=== PATIENT | female | born 1970 | race Two or more races ===

== ENCOUNTER 2018-03-13 18:52 | Emergency (ER) | payer SELFPAY ==
[2018-03-13] MEDS ORDERED: PROCHLORPERAZINE EDISYLATE INJ 10 MG/2 ML VIAL IM ONE (20:16)
[2018-03-13] MEDS ORDERED: DIPHENHYDRAMINE HCL 50 MG/ML VIAL IM ONE (20:16)
--- NOTE | 2018-03-13 20:24 | ER Document Report ---
ED General - General Chief Complaint: Headache Stated Complaint: KNEE PAIN Time Seen by Provider: 03/13/18 20:08 Notes: Yesterday patient was chasing a cat when her right knee gave out causing her to land on her right knee and also hitting her head on a concrete column. Since that time she has had multiple episodes of vomiting nausea and a global headache. Denies any vision changes or loss of consciousness. Denies being on any blood thinners. Denies any pain elsewhere in her body. TRAVEL OUTSIDE OF THE [place] IN LAST 30 DAYS: No - Related Data Allergies/Adverse Reactions: peanut Allergy (Verified 03/13/18 21:51) Past Medical History - Social History Smoking Status: Unknown if Ever Smoked Family History: Reviewed & Not Pertinent Review of Systems - Review of Systems Constitutional: No symptoms reported EENT: No symptoms reported Cardiovascular: No symptoms reported Respiratory: No symptoms reported Gastrointestinal: No symptoms reported Genitourinary: No symptoms reported Female Genitourinary: No symptoms reported Musculoskeletal: No symptoms reported Skin: No symptoms reported Hematologic/Lymphatic: No symptoms reported Neurological/Psychological: See HPI Physical Exam - Vital signs Vitals: Temp Pulse Resp BP Pulse Ox 98.9 F 100 18 140/94 H 96 03/13/18 19:10 03/13/18 19:10 03/13/18 19:10 03/13/18 19:10 03/13/18 19:10 - General General appearance: Appears well, Alert - HEENT Head: Normocephalic - Nontender cervical spine palpation, Atraumatic - After performing a Medical Screening Examination, I estimate there is LOW risk for ACUTE GLAUCOMA, TEMPORAL ARTERITIS, MENINGITIS, INCRANIAL HEMORRHAGE, or ISCHEMIC STROKE thus I consider the discharge disposition reasonable. I have reevaluated this patient multiple times and no significant life threatening changes are noted. The patient and I have discussed the diagnosis and risks, and we agree with discharging home with close follow-up with the understanding that symptoms and presentations can change. We also discussed returning to the Emergency Department immediately if new or worsening symptoms occur. We have discussed the symptoms which are most concerning (e.g., changing or worsening symptoms, new numbness or weakness, vomiting, fever) that necessitate immediate return. Eyes: Normal, Other - No nystagmus Conjunctiva: Normal Extraocular movements intact: Yes - Right - Respiratory Respiratory status: No respiratory distress Chest status: Nontender Breath sounds: Normal - Cardiovascular Rhythm: Regular Heart sounds: Normal auscultation Murmur: No - Abdominal Inspection: Normal Distension: No distension - Extremities General upper extremity: Normal inspection - Patient has tenderness to palpation of right patella no crepitus. Joint right knee stable, no acute findings on the left lower extremity - Neurological Neuro grossly intact: Yes Cognition: Normal Orientation: AAOx4 Alexander Coma Scale Eye Opening: Spontaneous Alexander Coma Scale Verbal: Oriented [place] Coma Scale Motor: Obeys Commands [place] Coma Scale Total: 15 Speech: Normal Cranial nerves: Normal Cerebellar coordination: Normal Course - Re-evaluation Re-evalutation: 03/13/18 21:40 No acute findings found on CT of head and no concerning findings on the x-ray. Headache has subsided with medications provided emergency department. We will provide oral Compazine take home prescription as well as anti- inflammatories for her knee pain. - Vital Signs Vital signs: Temp Pulse Resp BP Pulse Ox 97.6 F 78 18 136/93 H 96 03/13/18 21:50 03/13/18 21:50 03/13/18 21:50 03/13/18 21:50 03/13/18 21:50 Discharge - Discharge Clinical Impression: Knee pain, right Qualifiers: Chronicity: acute Qualified Code(s): M25.561 - Pain in right knee Fall while running Qualifiers: Encounter type: initial encounter Qualified Code(s): W19.XXXA - Unspecified fall, initial encounter Headache Qualifiers: Headache type: unspecified Headache chronicity pattern: acute headache Intractability: not intractable Qualified Code(s): R51 - Headache Condition: Good Disposition: HOME, SELF-CARE Instructions: Headache ([facility]) Additional Instructions: Please be evaluated in the next week if symptoms are not improving for reevaluation Prescriptions: Naproxen 500 mg PO BID #20 tablet Prochlorperazine Maleate [Compazine 10 mg Tablet] 10 mg PO ASDIR PRN #30 tablet PRN Reason:
--- NOTE | 2018-03-13 20:44 | RADIOLOGY REPORT (SQ) ---
EXAM DESCRIPTION: KNEE RIGHT 3 VIEWS COMPLETED DATE/TIME: 03/13/2018 8:35 pm REASON FOR STUDY: fall, N/V COMPARISON: None. NUMBER OF VIEWS: Four views. TECHNIQUE: AP, lateral, and sunrise patella radiographic images acquired of the right knee. LIMITATIONS: None. FINDINGS: MINERALIZATION: Normal. BONES: No acute fracture or dislocation. No worrisome bone lesions. JOINT: Small marginal patellar osteophytes are present. There is no joint effusion. SOFT TISSUES: No soft tissue swelling. No radio-opaque foreign body. OTHER: No other significant finding. IMPRESSION: Mild patellofemoral degenerative joint changes. TECHNICAL DOCUMENTATION: JOB ID: [id number] [employer]- All Rights Reserved Reading location - IP/workstation name: [email or web address]
--- NOTE | 2018-03-13 21:23 | RADIOLOGY REPORT (SQ) ---
EXAM DESCRIPTION: CT HEAD WITHOUT COMPLETED DATE/TIME: 03/13/2018 8:44 pm REASON FOR STUDY: fall, N/V COMPARISON: None. TECHNIQUE: Axial images acquired through the brain without intravenous contrast. Images reviewed wi th bone, brain and subdural windows. Images stored on PACS. All CT scanners at this facility use dose modulation, iterative reconstruction, and/or weight based d osing when appropriate to reduce radiation dose to as low as reasonably achievable (ALARA). [facility]: Dose Right [facility]: CareDose [facility]: Dose Right [facility]: Teradose 4D [facility]: CertusNet RADIATION DOSE: CT Rad equipment meets quality standard of care and radiation dose reduction techniq ues were employed. CTDIvol: 53.2 mGy. DLP: 964 mGy-cm. mGy. LIMITATIONS: None. FINDINGS: VENTRICLES: Normal size and contour. CEREBRUM: No masses. No hemorrhage. No midline shift. No evidence for acute infarction. Normal gra y/white matter differentiation. No areas of low density in the white matter. CEREBELLUM: No masses. No hemorrhage. No alteration of density. No evidence for acute infarction. EXTRAAXIAL SPACES: No fluid collections. No masses. ORBITS AND GLOBE: No intra- or extraconal masses. Normal contour of globe without masses. CALVARIUM: No fracture. PARANASAL SINUSES: No fluid or mucosal thickening. SOFT TISSUES: No mass or hematoma. OTHER: No other significant finding. IMPRESSION: NORMAL BRAIN CT WITHOUT CONTRAST. EVIDENCE OF ACUTE STROKE: NO. COMMENT: Quality ID # [id number]: Final reports with documentation of one or more dose reduction techniques (e.g., Automated exposure control, adjustment of the mA and/or kV according to patient size, use of iterative reconstruction technique) TECHNICAL DOCUMENTATION: JOB ID: [id number] [employer]- All Rights Reserved Reading location - IP/workstation name: [email or web address]
[2018-03-13 21:51] VITALS: BP 136/93
== END 2018-03-13 21:51 | disposition home or self-care (01) ==
LOC: ER 18:52
DX: M25.561 Pain in right knee (principal); R51 Headache; R11.2 Nausea with vomiting, unspecified; W18.30XA Fall on same level, unspecified, initial encounter; Y93.K9 Activity, other involving animal care
CPT/HCPCS: 99284; 96372; 73562; 70450; J1200; J0780

== ENCOUNTER 2018-05-25 12:49 | Emergency (ER) | payer SELFPAY ==
[2018-05-25] MEDS ORDERED: IPRATROPIUM/ALBUTEROL 0.5-2.5 MG/3 ML AMPUL NEB ONE (13:14)
[2018-05-25] MEDS ORDERED: PREDNISONE 20 MG TABLET PO ONE (13:14)
[2018-05-25] MEDS ORDERED: GUAIFENESIN/CODEINE PHOS 100-10 MG/ 5 ML UDC PO ONE (13:14)
--- NOTE | 2018-05-25 13:18 | ER Document Report ---
ED Flu Like - General Chief Complaint: Flu Symptoms Stated Complaint: FLU LIKE SYMPTOMS Time Seen by Provider: 05/25/18 13:13 Notes: History of Present Illness Chief Complaint: [cough] Cough quality= [dry], [without] sputum [No] hemoptysis [ ] History obtained from [patient] 48 years old female presents today with nearly a week history of runny nose postnasal drip leading to cough and wheezing chest tightness on exertion. Cough is largely dry cough. Denies any chest pain denies any fever chills or other constitutional symptoms. Symptoms began: [past few days] Onset: [gradual] Timing: [constant, lasts hours, persists] Intensity: [moderate] Location: [respiratory tract] Radiation: [none] Migration: [none] Aggravating factors: [none] Relieving factors: [none] Review of Systems : All other systems negative as reviewed. CONSTITUTIONAL No Fever. EYES No eye pain. ENT No sore throat CARDIOVASCULAR No chest pain. RESPIRATORY No SOB, No wheezing, No orthopnea, No pedal edema. GI No abdominal pain, no vomiting, no diarrhea. GENITOURINARY No dysuria. SKIN No rash. NEUROLOGIC No headache. MUSCULOSKELETAL No back pain, No calf pain, No calf swelling Physical Exam CONSTITUTIONAL Vital signs reviewed, Patient has normal respiratory rate, Well appearing, Patient appears comfortable, normal stature. HEAD Atraumatic, Normocephalic. EYES Eyes are normal to inspection. ENT Ears normal to inspection, Nose examination normal. NECK No jugular venous distention. RESPIRATORY CHEST Breath sounds ], No respiratory distress. But diffusely decreased breath sounds bilaterally CARDIOVASCULAR RRR, No murmurs, Normal S1 S2, No rub, No gallop. ABDOMEN Abdomen is nontender, No masses, Bowel sounds normal, No distension, No peritoneal signs. BACK Normal inspection. UPPER EXTREMITY Inspection normal. LOWER EXTREMITY Inspection normal. NEURO No facial droop, normal speech. SKIN Skin is warm, Skin is dry, Skin is normal color. PSYCHIATRIC Normal affect. TRAVEL OUTSIDE OF THE [place] IN LAST 30 DAYS: No - Related Data Allergies/Adverse Reactions: peanut Allergy (Verified 05/25/18 12:51) Past Medical History - Social History Smoking Status: Former Smoker Chew tobacco use (# tins/day): No Smoking Education Provided: No Frequency of alcohol use: Occasional Drug Abuse: None Lives with: Family Family History: Reviewed & Not Pertinent Renal/ Medical History: Denies: Hx Peritoneal Dialysis Review of Systems - Review of Systems Notes: Dictated Physical Exam - Vital signs Vitals: Temp Pulse Resp BP Pulse Ox 98.1 F 93 18 137/97 H 96 05/25/18 12:54 05/25/18 12:54 05/25/18 12:54 05/25/18 12:54 05/25/18 12:54 - Notes Notes: Dictated Course - Re-evaluation Re-evalutation: 05/25/18 14:43 She was given bronchodilator treatment x2. With clinical improvement discharge home - Vital Signs Vital signs: Temp Pulse Resp BP Pulse Ox 98.1 F 93 18 137/97 H 96 05/25/18 12:54 05/25/18 12:54 05/25/18 12:54 05/25/18 12:54 05/25/18 12:54 - Diagnostic Test Radiology reviewed: Image reviewed - No obvious infiltration effusion or pneumothorax normal chest x-ray, Reports reviewed - Reported by radiologist as unremarkable. No acute infiltration effusion on a month Discharge - Discharge Clinical Impression: URI, acute Asthmatic bronchitis with acute exacerbation Qualifiers: Asthma severity: moderate Asthma persistence: persistent Qualified Code(s): J45.41 - Moderate persistent asthma with (acute) exacerbation Condition: Fair Disposition: HOME, SELF-CARE Instructions: Bronchitis With Bronchospasm (Wheezing) ([facility]) Prescriptions: Albuterol Sulfate [Proair HFA] 1 - 2 puff IH Q4 PRN #1 inhaler PRN Reason: Azithromycin [Zithromax Tri-Dante] 500 mg PO DAILY #1 pkg Guaifenesin/Codeine Phos [Robitussin-AC Syrup 59 ml] 10 ml PO QIDP PRN #120 ml PRN Reason: Prednisone [Sterapred Ds] 1 pkg PO ASDIR PRN 12 Days tab.ds.pk PRN Reason:
[2018-05-25 13:54] LABS: A TYPE INFLUENZA AG NEGATIVE (NEGATIVE); B INFLUENZA AG NEGATIVE (NEGATIVE)
[2018-05-25] MEDS ORDERED: ALBUTEROL SULFATE 0.083% NEB 2.5 MG/3 ML AMPUL NEB ONE (14:23)
--- NOTE | 2018-05-25 14:40 | RADIOLOGY REPORT (SQ) ---
EXAM DESCRIPTION: CHEST 2 VIEWS COMPLETED DATE/TIME: 05/25/2018 2:19 pm REASON FOR STUDY: Cough COMPARISON: None. EXAM PARAMETERS: NUMBER OF VIEWS: two views TECHNIQUE: Digital Frontal and Lateral radiographic views of the chest acquired. RADIATION DOSE: NA LIMITATIONS: none FINDINGS: LUNGS AND PLEURA: No opacities, masses or pneumothorax. No pleural effusion. MEDIASTINUM AND HILAR STRUCTURES: No masses or contour abnormalities. HEART AND VASCULAR STRUCTURES: Heart normal size. No evidence for failure. BONES: No acute findings. HARDWARE: None in the chest. OTHER: No other significant finding. IMPRESSION: NO ACUTE RADIOGRAPHIC FINDING IN THE CHEST. TECHNICAL DOCUMENTATION: JOB ID: [id number] [employer]- All Rights Reserved Reading location - IP/workstation name: [email or web address]
[2018-05-25 15:03] VITALS: BP 132/81
== END 2018-05-25 15:06 | disposition home or self-care (01) ==
LOC: ER 12:49
DX: J06.9 Acute upper respiratory infection, unspecified (principal); J45.41 Moderate persistent asthma with (acute) exacerbation; R09.89 Other specified symptoms and signs involving the circulatory and respiratory systems; R09.82 Postnasal drip; R05 Cough; R07.89 Other chest pain; R06.2 Wheezing; Z87.891 Personal history of nicotine dependence; Z91.010 Allergy to peanuts
CPT/HCPCS: 94640; 99284; 87804; 71046; J7512; J7620

== ENCOUNTER 2018-06-11 12:09 | Emergency (ER) | payer SELFPAY ==
[2018-06-11] MEDS ORDERED: METHYLPREDNISOLONE INJ 125 MG/2 ML SDV IV ONE (13:18)
[2018-06-11] MEDS ORDERED: IPRATROPIUM/ALBUTEROL 0.5-2.5 MG/3 ML AMPUL NEB ONE (13:18)
--- NOTE | 2018-06-11 13:20 | ER Document Report ---
ED Medical Screen (RME) - General Chief Complaint: Breathing Difficulty Stated Complaint: DIFFICULTY BREATHING Time Seen by Provider: 06/11/18 13:14 Mode of Arrival: Ambulatory Information source: Patient Notes: 48-year-old female with a history of lupus presents emergency department with complaints of shortness of breath. Patient states that she was diagnosed with bronchitis a week and a half ago. She was discharged home with steroids, cough medicine, an inhaler, azithromycin. Patient states that she has been taking the medication as directed but she is not getting any better. She is having some associated chest pain. She describes it as a sharp and stabbing sensation that is worse with deep breaths. She denies any alleviating factors. I have greeted and performed a rapid initial assessment of this patient. A comprehensive ED assessment and evaluation of the patient, analysis of test results and completion of the medical decision making process will be conducted by additional ED providers. PHYSICAL EXAMINATION: GENERAL: Well-appearing, well-nourished and in no acute distress. HEAD: Atraumatic, normocephalic. EYES: Pupils equal round extraocular movements intact, conjunctiva are normal. ENT: Nares patent NECK: Normal range of motion LUNGS: No respiratory distress Musculoskeletal: Normal range of motion NEUROLOGICAL: Normal speech, normal gait. PSYCH: Normal mood, normal affect. SKIN: Warm, Dry, normal turgor, no rashes or lesions noted. TRAVEL OUTSIDE OF THE [place] IN LAST 30 DAYS: No - Related Data Allergies/Adverse Reactions: peanut Allergy (Verified 06/11/18 12:10) Past Medical History Renal/ Medical History: Denies: Hx Peritoneal Dialysis Musculoskeltal Medical History: Reports Hx Arthritis Physical Exam - Vital signs Vitals: Temp Pulse Resp BP Pulse Ox 99.3 F 96 20 141/85 H 95 06/11/18 12:13 06/11/18 12:13 06/11/18 12:13 06/11/18 12:13 06/11/18 12:13 Course - Vital Signs Vital signs: Temp Pulse Resp BP Pulse Ox 99.3 F 96 20 141/85 H 95 06/11/18 12:13 06/11/18 12:13 06/11/18 12:13 06/11/18 12:13 06/11/18 12:13
[2018-06-11 14:45] LABS: ABSOLUTE EOSINOPHILS # (AUTO) 0.1 10^3/uL (0.0-0.6); ABSOLUTE LYMPHOCYTES (AUTO) 1.7 10^3/uL (0.5-4.7); ABSOLUTE MONOCYTES (AUTO) 0.9 10^3/uL (0.1-1.4); ABSOLUTE NEUT (AUTO) 10.7 10^3/uL (1.7-8.2); BASOPHILS % (AUTO) 0.3 % (0-2); EOSINOPHILS % (AUTO) 0.7 % (0-6); HEMATOCRIT 42.7 % (36.0-47.0); HEMOGLOBIN 14.8 g/dL (12.0-15.5); LYMPHOCYTES % (AUTO) 12.7 % (13-45); MEAN CORPUSCULAR HEMOGLOBIN 30.9 pg (27.0-33.4); MEAN CORPUSCULAR HGB CONC 34.6 g/dL (32.0-36.0); MEAN CORPUSCULAR VOLUME 89 fl (80-97); MONOCYTES % (AUTO) 6.9 % (3-13); PLATELET COUNT 398 10^3/uL (150-450); RED BLOOD COUNT 4.79 10^6/uL (3.72-5.28); RED CELL DISTRIBUTION WIDTH 14.3 % (11.5-14.0); SEGMENTED NEUTROPHILS % (AUTO) 79.4 % (42-78); TOTAL CELLS COUNTED % (AUTO) 100 %; WHITE BLOOD COUNT 13.5 10^3/uL (4.0-10.5)
[2018-06-11 15:00] LABS: ALANINE AMINOTRANSFERASE 40 U/L (9-52); ALBUMIN 3.4 g/dL (3.5-5.0); ALKALINE PHOSPHATASE 110 U/L (38-126); ANION GAP 12 (5-19); ASPARTATE AMINO TRANSFERASE 18 U/L (14-36); BILIRUBIN,TOTAL 0.2 mg/dL (0.2-1.3); BLOOD UREA NITROGEN 11 mg/dL (7-20); CALCIUM 8.7 mg/dL (8.4-10.2); CARBON DIOXIDE 20 mmol/L (22-30); CHLORIDE 108 mmol/L (98-107); GLUCOSE 198 mg/dL (75-110); POTASSIUM 4.4 mmol/L (3.6-5.0); SODIUM 139.9 mmol/L (137-145); TOTAL PROTEIN 5.7 g/dL (6.3-8.2)
[2018-06-11 15:05] LABS: A TYPE INFLUENZA AG NEGATIVE (NEGATIVE); B INFLUENZA AG NEGATIVE (NEGATIVE)
[2018-06-11] MEDS ORDERED: ALBUTEROL SULFATE 0.083% NEB 2.5 MG/3 ML AMPUL NEB ONE (15:05)
[2018-06-11] MEDS ORDERED: LIDOCAINE 1% INJ-PF (10 MG/ML) 30 ML SDV NEB ONE (15:05)
[2018-06-11] MEDS ORDERED: MAGNESIUM SULFATE/D5W 1 GM/100 ML RTUPB IV ONE (15:06)
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
--- NOTE | 2018-06-11 15:38 | RADIOLOGY REPORT (SQ) ---
EXAM DESCRIPTION: CHEST 2 VIEWS COMPLETED DATE/TIME: 06/11/2018 2:25 pm REASON FOR STUDY: cough COMPARISON: 05/25/2018. EXAM PARAMETERS: NUMBER OF VIEWS: two views TECHNIQUE: Digital Frontal and Lateral radiographic views of the chest acquired. RADIATION DOSE: NA LIMITATIONS: none FINDINGS: LUNGS AND PLEURA: No opacities, masses or pneumothorax. No pleural effusion. MEDIASTINUM AND HILAR STRUCTURES: No masses or contour abnormalities. HEART AND VASCULAR STRUCTURES: Heart normal size. No evidence for failure. BONES: No acute findings. HARDWARE: None in the chest. OTHER: No other significant finding. IMPRESSION: NO ACUTE RADIOGRAPHIC FINDING IN THE CHEST. TECHNICAL DOCUMENTATION: JOB ID: [id number] [employer]- All Rights Reserved Reading location - IP/workstation name: [email or web address]
[2018-06-11] MEDS ORDERED: BENZONATATE 100 MG CAPSULE PO ONE (16:38)
[2018-06-11 17:20] VITALS: BP 124/79
[2018-06-11] MEDS ORDERED: ALBUTEROL SULFATE HFA (90 MCG/PUFF) 8 GM MDI (1 MDI/ER DISP) IH ONE (17:26)
--- NOTE | 2018-06-11 18:30 | EKG REPORT ---
SEVERITY:- ABNORMAL ECG - SINUS RHYTHM LEFT ANTERIOR FASCICULAR BLOCK : Confirmed by: Vidal Barone MD 11-Jun-2018 18:29:17
== END 2018-06-11 17:46 | disposition home or self-care (01) ==
LOC: ER 12:09
DX: J45.909 Unspecified asthma, uncomplicated (principal); R06.02 Shortness of breath; R09.81 Nasal congestion
CPT/HCPCS: 93005; 94640 ×2; 99285; 96375; 96365; 36415; 85025; 80053; 84484; 87804; 71046; 93010; J3490 ×2; J2930; J3475; J7620